=== PATIENT | female | born 1990 | race Caucasian/White ===

== ENCOUNTER 2023-08-06 20:17 | Emergency (ER) | payer OTHER, SELFPAY ==
[2023-08-06 20:24] VITALS: BP 148/87; PULSE 92; TEMP 36.9; O2SAT 96; BMI 30.2
[2023-08-06 20:38] LABS: Bilirubin Urine NEGATIVE (NEGATIVE); Blood Urine LARGE (NEGATIVE); Clarity Urine CLEAR (CLEAR); Color Urine YELLOW (YELLOW); Glucose Urine UA NEGATIVE (NEGATIVE); Ketones Urine NEGATIVE (NEGATIVE); Leukocyte Esterase Urine LARGE (NEGATIVE); Nitrite Urine POSITIVE (NEGATIVE); Protein Urine 100 mg/dL (NEG/TRACE); Specific Gravity Urine <=1.005 (1.005-1.025)
[2023-08-06 20:41] LABS: HCG Qualitative Urine* NEGATIVE (NEGATIVE); Internal Control Within Normal Limits; Urine Microscopic Indicated YES
[2023-08-06 20:46] LABS: Bacteria Urine SMALL #/HPF (NONE SEEN); Cast Seen? NONE SEEN #/LPF (NONE SEEN); Crystals Seen? None Seen #/HPF (None Seen); Squamous Epithelial Cell Urine FEW #/LPF (NONE/RARE); Transitional Epi Cells Urine FEW #/LPF (NONE SEEN); Urine Culture Indicated YES; WBC Urine 75-100 #/HPF (NONE SEEN)
[2023-08-06 20:48] LABS: Mucus Urine NONE SEEN (NONE SEEN)
--- NOTE | 2023-08-06 20:51 | CT_ITS ---
The [address] [address] Patient Name: DOUG MORALES MRN: [id number] date: 1990 Sex: F Assigned Patient Location: ER Current Patient Location: Accession/Order Number: [id number] Exam Date: 08/06/2023 21:24 Report Date: 08/06/2023 21:44 At the request of: PRABHU MARKER Procedure: CT abdomen pelvis wo con CT abdomen pelvis wo con 08/06/2023 8:24 PM CDT: History: Left lower quad abd and flank pain Comparison: None. Technique: Unenhanced CT imaging of the abdomen and pelvis. This CT exam was performed using one or more of the following dose reduction techniques: Automated exposure control, adjustment of the mA and/or KV according to patient size, or use of iterative reconstruction technique. Unless otherwise stated, incidental findings do not require dedicated follow-up imaging. Findings: The lung bases are clear. The heart size is normal. The liver, spleen, pancreas, adrenal glands, and kidneys have a normal noncontrast enhanced appearance. The gallbladder is distended. There is no biliary duct dilatation. The bowel is unobstructed. The appendix is normal. The bladder is distended and normal. The bones are intact without acute abnormality. CT/CT abdomen pelvis wo con Impression: No acute abnormality. Electronically authenticated by: ELIZABETH CAGLE Date: 08/06/2023 21:44
--- NOTE | 2023-08-06 20:54 | ED.FEMALEGU1 ---
HPI - Female Genitourinary General Chief complaint: Urogenital-Female Stated complaint: UTI, Back Pain Time Seen by Provider: 08/06/23 20:24 Source: patient Mode of arrival: walk-in Limitations: no limitations History of Present Illness HPI Narrative: This 33-year-old female presents for evaluation of left flank pain and left lower quadrant abdominal pain associated with nausea and chills. The patient was diagnosed with a urinary tract infection later this week and started on Bactrim. She states she has taken 4 doses of Bactrim but her symptoms are worsening. She does not have a history of kidney stones. She states she is having left flank pain that radiates into her left lower quadrant that started earlier today. She has some chills and nausea. She has not had any vomiting or diarrhea. She does not have a history of kidney stones. Patient states she was at her daughter's softball game [employer] and was too uncomfortable to sit there so came to the emergency department. She has been taking Azo as well without significant improvement. She denies any chest pain or shortness of breath. She denies the possibility of . Related Data Home Medications ?Medication ?Instructions ?Recorded ?Confirmed bupropion HCl 150 mg 24 hr tablet, 150 mg PO BID 08/06/23 08/06/23 extended release buspirone 10 mg tablet 10 mg PO BID 08/06/23 08/06/23 fluconazole 150 mg tablet 150 mg PO ONCE 08/06/23 08/06/23 sulfamethoxazole 800 1 tab PO TID 08/06/23 08/06/23 mg-trimethoprim 160 mg tablet Allergies Allergy/AdvReac Type Severity Reaction Status Date / Time amoxicillin Allergy Intermediate Hives Verified 08/06/23 20:27 Review of Systems ROS Status of ROS 10 or more systems reviewed and unremarkable except as noted in history and below Exam Narrative Exam Narrative: Vital signs and Nursing Notes reviewed: She is afebrile with a normal pulse, blood pressure is elevated at 148/87, she is not hypoxic with pulse ox of 96% on room air General: Awake, alert, oriented, nontoxic but uncomfortable appearing female, no respiratory distress HEENT: Normocephalic atraumatic, mucous membranes are moist and pink, eyes are clear, normal conjunctiva, vision is grossly intact Chest: Lungs are clear to auscultation with good air entry, there is no wheezing rhonchi or rales appreciated no accessory muscle use, patient is speaking in complete sentences-no chest wall tenderness to palpation CVS: Regular rate and rhythm S1-S2, no murmurs rubs or gallops, pulses are brisk and equal bilaterally ABD: Soft, nondistended, tenderness in the left lower quadrant and along the distribution of the left ureter and left flank, abdomen is otherwise soft, nondistended and nontender, there is no right lower quadrant, right upper quadrant or left upper quadrant tenderness Extremities: Moving all extremities, no lower extremity tenderness or swelling noted, negative Homans' sign, pulses are brisk and equal bilaterally Skin: Normal in appearance without rash,pallor, petechiae or purpura Neuro: No focal deficits Constitutional Vital Signs, click to edit/add: Last Vital Signs Temp 98.5 F 08/06/23 20:24 Pulse 92 H 08/06/23 20:24 Resp 16 08/06/23 20:24 BP 166/68 H 08/06/23 22:57 Pulse Ox 96 08/06/23 20:24 O2 Del Method Room Air 08/06/23 20:24 Course Vital Signs Vital signs: Vital Signs Temperature 98.5 F 08/06/23 20:24 Pulse Rate 92 H 08/06/23 20:24 Respiratory Rate 16 08/06/23 20:24 Blood Pressure 148/87 H 08/06/23 20:24 Pulse Oximetry 96 08/06/23 20:24 Oxygen Delivery Method Room Air 08/06/23 20:24 Temperature 98.5 F 08/06/23 20:24 Pulse Rate 92 H 08/06/23 20:24 Respiratory Rate 16 08/06/23 20:24 Blood Pressure 166/68 H 08/06/23 22:57 Pulse Oximetry 96 08/06/23 20:24 Oxygen Delivery Method Room Air 08/06/23 20:24 MDM - Female Genitourinary MDM Narrative Medical decision making narrative: This 33-year-old female who is currently on Bactrim for urinary tract infection that was prescribed by her [employer] presents for evaluation of left flank pain with radiation into the left lower quadrant associated with nausea and chills. She does not have a history of kidney stones. She has been unable to get comfortable and despite the Azo she is taking and Bactrim she is having ongoing urinary symptoms. She states she gets frequent urinary tract infections after sexual intercourse. She has never been seen by urology in the past. My concern was that the patient was developing a pyelonephritis or had a kidney stone with an infection. An IV was placed and she was medicated with IV fluids, Toradol Zofran and IV Cipro. Her urine is positive for white blood cells, nitrite and bacteria. Her white count is mildly elevated at 12.9. Electrolytes are normal the mildly low sodium at 131. Noncontrast CT scan of the abdomen pelvis was ordered and is negative for acute findings. The results of the labs and CT scan were discussed with the patient and her . She was medicated with a dose of [place] due to ongoing left lower quadrant and left flank abdominal pain. I explained to her that my concern is that she may be developing a kidney infection. She will be discharged home with a prescription for Cipro to take over the course of the next 7 days. I encouraged her to check with her [employer] who prescribed her Bactrim to see if culture and sensitivity results were available from the urine that had been submitted earlier in the week. She will be discharged home with Cipro, Zofran, Azo and [place]. She was encouraged to drink plenty of fluids and return to the emergency department for fever, rigors, intractable nausea vomiting, intractable flank pain or any concerns. She will also be referred to outpatient urology as she states she gets multiple urinary tract infections. Medical Records Medical records narrative: [place] [address] CT Scan Report Signed Patient: DOUG MORALES MR#: [id number] : 1990 Acct:[id number] Age/Sex: 33 / F ADM Date: 08/06/23 Loc: ER Attending Dr: Ordering Physician: Anabella Taylor Date of Service: 08/06/23 Procedure(s): CT abdomen pelvis wo con Accession Number(s): [id number] cc: EFREN ANDERSON~ The [place] [address] Patient Name: DOUG MORALES MRN: [id number] date: 1990 Sex: F Assigned Patient Location: ER Current Patient Location: ER Accession/Order Number: [id number] Exam Date: 08/06/2023 21:24 Report Date: 08/06/2023 21:44 At the request of: ANABELLA TAYLOR Procedure: CT abdomen pelvis wo con CT abdomen pelvis wo con 08/06/2023 8:24 PM CDT: History: Left lower quad abd and flank pain Comparison: None. Technique: Unenhanced CT imaging of the abdomen and pelvis. This CT exam was performed using one or more of the following dose reduction techniques: Automated exposure control, adjustment of the mA and/or KV according to patient size, or use of iterative reconstruction technique. Unless otherwise stated, incidental findings do not require dedicated follow-up imaging. Findings: The lung bases are clear. The heart size is normal. The liver, spleen, pancreas, adrenal glands, and kidneys have a normal noncontrast enhanced appearance. The gallbladder is distended. There is no biliary duct dilatation. The bowel is unobstructed. The appendix is normal. The bladder is distended and normal. The bones are intact without acute abnormality. CT/CT abdomen pelvis wo con Impression: No acute abnormality. Electronically authenticated by: ELIZABETH CAGLE Date: 08/06/2023 21:44 Lab Data Labs: Lab Results 08/06/23 08/06/23 Range/Units 20:32 20:40 WBC 12.9 H (4.0-11.0) 10^3/uL RBC 4.00 L (4.20-5.40) 10^6/uL Hgb 11.7 L (12.0-16.0) g/dL Hct 35.4 L (36.0-48.0) % MCV 88.5 (81.0-99.0) fL MCH 29.3 (26.7-34.0) pg MCHC 33.1 (29.9-35.2) g/dL RDW 13.2 (11.0-15.0) % Plt Count 241 (150-450) 10^3/uL MPV 11.1 (9.5-13.5) fL Neut % (Auto) 69.2 (43.0-75.0) % Lymph % (Auto) 23.3 (20.5-60.0) % [place] % (Auto) 6.2 (1.7-12.0) % Eos % (Auto) 0.8 L (0.9-7.0) % Baso % (Auto) 0.3 (0.2-2.0) % Neut # (Auto) 8.9 H (1.4-6.5) 10^3/uL Lymph # (Auto) 3.0 (1.2-3.8) 10^3/uL [place] # (Auto) 0.8 (0.3-0.8) 10^3/uL Eos # (Auto) 0.1 (0.0-0.7) 10^3/uL Baso # (Auto) 0.0 (0.0-0.1) 10^3/uL Abs Immat Gran (auto) 0.03 (0.00-0.03) 10^3/uL Imm/Tot Granulo (auto) 0.2 (0.0-0.5) % Sodium 131 L (136-145) mmol/L Potassium 3.5 (3.5-5.1) mmol/L Chloride 97 L (98-107) mmol/L Carbon Dioxide 27.5 (21.0-32.0) mmol/L Anion Gap 10.0 BUN 10.0 (7.0-18.0) mg/dL Creatinine 1.16 H (0.55-1.02) mg/dL Est GFR ( Amer) >60 (>=60) Est GFR (Non-Af Amer) 53 L (>=60) BUN/Creatinine Ratio 8.6 Glucose 86 (74-106) mg/dL Lactate 0.4 (0.4-2.0) mmol/L Calcium 9.2 (8.5-10.1) mg/dL Urine Color Yellow (YELLOW) Urine Clarity Clear (CLEAR) Urine pH 6.0 (5.0-9.0) Ur Specific [place] <=1.005 A (1.005-1.025) Urine Protein 100 A (NEG/TRACE) mg/dL Urine Glucose (UA) Negative (NEGATIVE) mg/dL Urine Ketones Negative (NEGATIVE) mg/dL Urine Occult Blood Large A (NEGATIVE) Urine Nitrite Positive A (NEGATIVE) Urine Bilirubin Negative (NEGATIVE) Urine Urobilinogen 1.0 (0.2-1.0) EU/dL Ur Leukocyte Esterase Large A (NEGATIVE) Urine RBC 5-10 A (0-2) #/HPF Urine WBC 75-100 A (NONE SEEN) #/HPF Ur Squamous Epith Cells Few A (NONE/RARE) #/LPF Ur Transition Epith Cell Few A (NONE SEEN) #/LPF Urine Crystals None seen (None Seen) #/HPF Urine Bacteria Small A (NONE SEEN) #/HPF Urine Casts None seen (NONE SEEN) #/LPF Urine Mucus None seen (NONE SEEN) Ur Culture Indicated? Yes Urine HCG, Qual Negative (NEGATIVE) Discharge Plan Discharge Stand Alone Forms: Portal Instructions Chief Complaint: Urogenital-Female Clinical Impression: Urinary tract infection, Acute left flank pain, Complicated UTI (urinary tract infection) Patient Disposition: Home, Self-Care Time of Disposition Decision: 22:07 Condition: Good Prescriptions / Home Meds: No Action fluconazole 150 mg tablet 150 mg PO ONCE sulfamethoxazole-trimethoprim 800-160 mg tablet 1 tab PO TID buspirone 10 mg tablet 10 mg PO BID bupropion HCl 150 mg tablet extended release 24 hr 150 mg PO BID Print Language: Romanian Instructions: Urinary Tract Infection in Women (ED), Flank Pain (ED) Referrals: Domo Ceron MD [Physician] - 1 week EFREN ANDERSON [Primary Care Provider] - 1 week Discharge Date/Time: 08/06/23 22:58
[2023-08-06 21:00] LABS: Basophils Percent Auto 0.3 % (0.2-2.0); Eosinophils Absolute Auto 0.1 10^3/uL (0.0-0.7); Eosinophils Percent Auto 0.8 % (0.9-7.0); Hematocrit 35.4 % (36.0-48.0); Hemoglobin 11.7 g/dL (12.0-16.0); Immature Granulocytes Abs Auto 0.03 10^3/uL (0.00-0.03); Immature Granulocytes Pct Auto 0.2 % (0.0-0.5); Lymphocytes Percent Auto 23.3 % (20.5-60.0); Mean Corpuscular HGB Conc 33.1 g/dL (29.9-35.2); Mean Corpuscular Hemoglobin 29.3 pg (26.7-34.0); Mean Corpuscular Volume 88.5 fL (81.0-99.0); Mean Platelet Volume 11.1 fL (9.5-13.5); Monocytes Absolute Auto 0.8 10^3/uL (0.3-0.8); Monocytes Percent Auto 6.2 % (1.7-12.0); Neutrophils Absolute Auto 8.9 10^3/uL (1.4-6.5); Neutrophils Percent Auto 69.2 % (43.0-75.0); Platelet Count 241 10^3/uL (150-450); Red Cell Distribution Width 13.2 % (11.0-15.0); White Blood Count 12.9 10^3/uL (4.0-11.0)
[2023-08-06 21:05] LABS: BUN Creatinine Ratio 8.6; Calcium 9.2 mg/dL (8.5-10.1); Carbon Dioxide 27.5 mmol/L (21.0-32.0); Chloride 97 mmol/L (98-107); Estimated GFR (African America >60 (>=60); Estimated GFR (Non-African Ame 53 (>=60); Glucose 86 mg/dL (74-106); Potassium 3.5 mmol/L (3.5-5.1); Sodium 131 mmol/L (136-145)
[2023-08-06 21:14] LABS: Lactate/Lactic Acid 0.4 mmol/L (0.4-2.0)
[2023-08-06] MEDS: 0.9 % SODIUM CHLORIDE 1,000 ML 1000 ML IV (21:22)
[2023-08-06] MEDS: KETOROLAC TROMETHAMINE 30 MG/ML VIAL IVP (21:22)
[2023-08-06] MEDS: ONDANSETRON PF 4 MG/2 ML VIAL IV (21:22)
[2023-08-06] MEDS: CIPROFLOXACIN IN 5 % DEXTROSE 400 MG/200 ML PIGGYBACK 200 MG IV (21:46)
[2023-08-06] MEDS: HYDROCODONE/ACET 5-325 MG TABLET 1 TAB PO (22:25)
[2023-08-06] MEDS: ONDANSETRON 4 MG RAPDIS TABLET SL (22:49)
[2023-08-06] MEDS: HYDROCODONE/ACET 5-325 MG TABLET 2 TAB PO (22:49)
[2023-08-06 22:57] VITALS: BP 166/68
--- NOTE | 2023-08-09 14:43 | PC.NURSE ---
08/09/23 1444 pt urine c+s from 08/06/[address] joel mock at this time. Amber Gardner RN
== END 2023-08-06 22:58 | disposition home or self-care (01) ==
PROVIDERS: Physician Assistant; Emergency Provider Emergency Medicine; PCP Nurse Practitioner Family
DX: N39.0 Urinary tract infection, site not specified (principal); R10.9 Unspecified abdominal pain
CPT/HCPCS: 36415; 74176; 80048; 81001; 83605; 84703; 85025; 87040; 87086; 87150; 87186; 96365; 96375; 99285; J0744; J1885; J2405; Q0162